=== PATIENT | female | born 1935 | race Caucasian/White ===

== ENCOUNTER 2021-06-24 19:23 | Observation (INO) ==
[2021-06-24] MEDS ORDERED: *HR* LORazepam 2 MG/ML VIAL IVP ONE (19:38)
[2021-06-24 19:44] LABS: Basophils % 0.3 %; Eosinophils # 0.1 K/mcL (0.0-0.6); Eosinophils % 1.5 %; Hematocrit 28.7 % (35.3-44.9); Immature Granulocytes % 0.2 % (0-4); Lymphocytes # 2.9 K/mcL (0.6-4.6); Lymphocytes % 44.3 %; Mean Corpuscular HGB Conc 31.4 g/dL (31.6-35.5); Mean Corpuscular Hemoglobin 25.8 pg (28.0-33.3); Mean Corpuscular Volume 82.2 fL (83.0-100.0); Mean Platelet Volume 9.4 fL (9.4-12.4); Monocytes # 0.5 K/mcL (0.0-1.3); Monocytes % 7.8 %; Platelet Count 276 K/mcL (140-400); Red Blood Count 3.49 M/mcL (3.82-4.97); Red Cell Distribution Width 13.8 % (11.5-14.5); Segmented Neutrophils % 45.9 %; White Blood Count 6.6 K/mcL (4.3-11.1)
[2021-06-24 19:53] LABS: INR 1.1; Prothrombin Time 12.6 Seconds (9.4-12.1)
[2021-06-24 20:00] LABS: Albumin 3.8 g/dL (3.5-5.7); Albumin/Globulin Ratio 1.5 (1.1-2.2); Bilirubin,Total 0.3 mg/dL (0.3-1.0); Calcium 9.4 mg/dL (8.6-10.3); Globulin 2.6 g/dL (2.4-3.5); Potassium 3.8 mEq/L (3.5-5.1); Total Protein 6.4 g/dL (6.4-8.9)
[2021-06-24] MEDS ORDERED: *HR* Promethazine 25 MG/ML VIAL IM ONE (20:37)
[2021-06-24] MEDS ORDERED: 0.9 % Sodium Chloride 1,000 ML IV ONE (20:51)
[2021-06-24] MEDS ORDERED: Ondansetron 4 MG/2 ML VIAL IVP ONE (21:47)
[2021-06-24 22:46] LABS: Bilirubin,Urine Negative (Negative); Blood,Urine Negative (Negative); Clarity,Urine Clear (Clear); Color,Urine Yellow (Yellow); Glucose,Urine (UA) Normal (Normal); Ketones,Urine Negative (Negative); Leukocyte Esterase,Urine Negative (Negative); Nitrite,Urine Negative (Negative); PH,Urine 8.5 pH Units (5.0-8.0); Protein,Urine Negative (Neg-Trace); Urobilinogen,Urine Normal (Normal)
[2021-06-24] MEDS ORDERED: Naloxone 0.4 MG/ML INJ IVP PRN (23:31)
[2021-06-24] MEDS ORDERED: Ondansetron 4 MG/2 ML VIAL IVP PRN (23:31)
[2021-06-25 00:37] LABS: Bilirubin,Urine Negative (Negative); Blood,Urine Negative (Negative); Clarity,Urine Clear (Clear); Glucose,Urine (UA) Normal (Normal); Ketones,Urine Negative (Negative); Leukocyte Esterase,Urine Negative (Negative); Nitrite,Urine Negative (Negative); Protein,Urine Negative (Neg-Trace); Specific Gravity,Urine 1.015 (1.010-1.025); Urobilinogen,Urine Normal (Normal)
[2021-06-25 00:39] LABS: Color,Urine Straw (Yellow)
[2021-06-25] MEDS ORDERED: hydrOXYzine pamoate 25 MG CAPSULE PO PRN (04:39)
[2021-06-25 05:59] LABS: Basophils % 0.2 %; Eosinophils % 0.4 %; Hematocrit 27.7 % (35.3-44.9); Hemoglobin 8.7 g/dL (11.5-15.4); Immature Granulocytes % 0.2 % (0-4); Lymphocytes # 1.8 K/mcL (0.6-4.6); Mean Corpuscular HGB Conc 31.4 g/dL (31.6-35.5); Mean Corpuscular Volume 82.7 fL (83.0-100.0); Mean Platelet Volume 9.5 fL (9.4-12.4); Monocytes # 0.3 K/mcL (0.0-1.3); Monocytes % 5.9 %; Neutrophils # 3.2 K/mcL (1.6-8.9); Platelet Count 234 K/mcL (140-400); Red Blood Count 3.35 M/mcL (3.82-4.97); Segmented Neutrophils % 59.3 %; White Blood Count 5.4 K/mcL (4.3-11.1)
[2021-06-25 06:58] LABS: Calcium 8.8 mg/dL (8.6-10.3); Chol/HDL Ratio 2.8 (0-4.9); Potassium 3.8 mEq/L (3.5-5.1)
[2021-06-25 06:59] VITALS: RESP 18
[2021-06-25] MEDS ORDERED: Furosemide 20 MG TABLET PO SCH (08:00)
[2021-06-25] MEDS ORDERED: lisinopriL 20 MG TABLET PO SCH (09:00)
[2021-06-25] MEDS ORDERED: *HR* Rivaroxaban 10 MG TABLET PO SCH (09:00)
[2021-06-25 11:35] VITALS: BP 159/73; PULSE 61; TEMP 97.8
[2021-06-25 13:02] VITALS: O2SAT 96
[2021-06-26] MEDS ORDERED: *HR* Rivaroxaban 15 MG TABLET PO SCH (09:00)
== END 2021-06-25 15:19 | disposition home or self-care (01) ==
LOC: INPPIK 19:23 → EMEROOPIK 19:23 → INPPIK 23:23
PROVIDERS: ADMIT Internal Medicine; ATTEND Internal Medicine